=== PATIENT | male | born 1960 | race Caucasian/White ===

== ENCOUNTER 2017-07-13 17:22 | Inpatient (IN) | payer BC ==
[~2017-07-13] VITALS: Ht 175.3 cm; Wt 79.8 kg
--- NOTE | ~2017-07-13 | HC ---
[facility] [place] [address] CONSULTATION Name: TANISHAROSALIA Eva Room #: 214-P ADM IN M.R.#: [id number] Admission: 07/13/17 Attend Phys: Uvaldo Thomas MD Discharge: Date of : 62 Report #: [id number] THIS REPORT FOR: //name// CC: ZEYNEP Thomas DATE OF SERVICE: 07/14/2017 PRIMARY CARE PHYSICIAN: Dr. Zeynep Garvin in [place], [place]. HISTORY OF PRESENT ILLNESS: The patient is a 57-year-old white male who was sent to the Emergency Room with evidence of high-degree AV block. The patient has a long history of chest pain. He previously was seen by my partner, Dr. Montes, back in 2012. Echocardiogram showed evidence of aortic sclerosis with moderate aortic insufficiency. Nuclear stress test showed no ischemia. He eventually underwent cardiac catheterization here at [facility] in 2012 that showed only 30% stenosis of the LAD, 40% stenosis of the marginal branch of circumflex and the right coronary artery had a 50% stenosis. He had normal left ventricular function. It is recommended he be treated medically. The patient has done well since that time, although he continues to have occasional chest pain. The patient stays active at work. He has a history of palpitations, wore Holter monitor back in 2015 that showed sinus bradycardia, sinus tachycardia, occasional PVC, ventricular triplet, rare PAC. The patient states he was doing well until the past week, he has felt somewhat short of breath, had fatigue and thought he had the flu. He went to see his physician yesterday. His blood pressure elevated. He was noted to be in high degree AV block. His drove him over to [facility], and he was admitted. He denies any syncope. He has had no palpitations. PAST MEDICAL HISTORY: He has had no major surgical procedures. He does have a history of hypertension and hyperlipidemia. MEDICATIONS: Consist of aspirin, lisinopril, Crestor, gabapentin because a history of manic depressive illness. Xanax as needed, Symbicort, ProAir. ALLERGIES: He has no known drug allergies. FAMILY HISTORY: Negative for heart disease. SOCIAL HISTORY: He is . He and his live in [place], [place]. He smokes a pack of cigarettes a day. Has 1-4 drinks of alcohol a day. He is a steel fabricator. REVIEW OF SYSTEMS: He has had no history of stroke. He does have a chronic cough. No history of peptic ulcer disease, liver disease, kidney disease, [address] [address] CONSULTATION Name: TANISHAROSALIA Eva Room #: 214-P [facility] IN M.R.#: [id number] Admission: 07/13/17 Attend Phys: Uvaldo Thomas MD Discharge: Date of : 62 Report #: [id number] chronic skin condition. He has bipolar. PHYSICAL EXAMINATION: GENERAL: Revealed a middle-aged male, lying in bed, he appeared in no distress. VITAL SIGNS: Blood pressure 140/60, pulse is 50. He is afebrile. HEENT: He is anicteric. Conjunctivae pink. Mucous membranes moist. NECK: Veins nondistended. No carotid bruits heard. Neck was supple. CHEST: Clear to auscultation. CARDIOVASCULAR: Irregular bradycardia. There was a grade 2 systolic ejection murmur along the left sternal border. ABDOMEN: Soft, nontender. EXTREMITIES: Had no edema. Dorsalis pedis pulse 3+ bilaterally. SKIN: Warm and dry. NEUROLOGIC: Nonfocal. LYMPH: No adenopathy. MUSCULOSKELETAL: No joint effusion. His workup included an ECG that showed a sinus rhythm. There was AV dissociation due to complete heart block, poor R-wave progression. His workup in the Emergency Room yesterday, he had a portable chest x-ray that showed normal heart size, clear lung croft. LABORATORY DATA: Sodium was 140, potassium 4.8, his BUN is 20, creatinine 1.1, glucose 151, magnesium 2.0. Troponin 0.04. His white blood cell count 10.1, hemoglobin 16. IMPRESSION AND RECOMMENDATIONS: 1. Complete heart block. Reason unclear. I would check thyroid function studies. No evidence of Lyme disease. I would recommend a permanent pacemaker. 2. Hypertension. The patient has been on an NICOLAS inhibitor. 3. Hyperlipidemia. The patient is on a statin drug. 4. Tobacco abuse. 5. Chronic bronchitis. 6. Bipolar illness. <ELECTRONICALLY SIGNED> By: Zeynep Mohan MD, [facility] 07/14/17 1854 0755 [id number] Zeynep Mohan MD, FACC /nt
--- NOTE | ~2017-07-13 | EKG ---
[address] [address] ELECTROCARDIOGRAM REPORT Name: ROSALIA GARAY Room #: 214-P ADM IN M.R.#: [id number] Admission: 07/13/17 Attend Phys: Uvaldo Thomas MD Discharge: Date of : 62 Report #: [id number] THIS REPORT FOR: //name// [facility] Test Date: 2017-07-15 Test Time: 06:22:29 Pat Name: ROSALIA GARAY Department: Room: 214 P Gender: M Clin Asst: : 1960 Requested By: Kaushik Mohan Order Number: [id number] MD: Peña Reynolds Measurements Intervals [place] Rate: 62 P: 54 MN: 219 QRS: -82 QRSD: 162 T: 78 QT: 484 QTc: 492 Interpretive Statements Sinus rhythm with ventricular pacing Electronically Signed On 07-15-2017 8:14:16 CDT by Peña Reynolds [email or web address] <ELECTRONICALLY SIGNED> By: Peña Reynolds MD 07/15/17 0814 0622 1 Peña Reynolds MD /LIANET
--- NOTE | ~2017-07-13 | EKG ---
[address] [address] ELECTROCARDIOGRAM REPORT Name: ROSALIA GARAY Room #: 214- ADM IN M.R.#: [id number] Admission: 07/13/17 Attend Phys: Uvaldo Thomas MD Discharge: Date of : 62 Report #: [id number] THIS REPORT FOR: //name// [facility] ED Test Date: 2017-07-13 Test Time: 17:26:51 Pat Name: ROSALIA GARAY Department: Room: [facility] Gender: M Roof Slater: KKODJUNE : 1960 Requested By: Gary Ghosh Order Number: [id number] MD: Peña Reynolds Measurements Intervals [place] Rate: 42 P: 62 UT: 126 QRS: -2 QRSD: 96 T: 30 QT: 495 QTc: 414 Interpretive Statements Sinus rhythm with complete heart block Electronically Signed On 07-13-2017 21:35:55 CDT by Peña Reynolds [email or web address] <ELECTRONICALLY SIGNED> By: Peña Reynolds MD 07/13/17 2135 1726 25 Peña Reynolds MD /LIANET
--- NOTE | ~2017-07-13 | 2DMMODE ---
[facility] [address] [facility] [place] [address] 2 D/M-MODE ECHOCARDIOGRAM Name: ROSALIA GARAY Room #: 214-P [facility] IN .R.#: [id number] Admission: 07/13/17 Attend Phys: Uvaldo Thomas, Discharge: Date of : 62 Date of Service: 07/14/17 1226 Report #: [id number] THIS REPORT FOR: //name// APPROVED REPORT Study performed: 07/14/2017 10:16:09 EXAM: Comprehensive 2D, Doppler, and color-flow Echocardiogram Patient Location: Bedside Room #: 214 Status: routine BSA: 1.95 HR: 50 bpm BP: 143/64 mmHg Other Information Study Quality: Good Indications Bradycardia Hypertension/HDD 2D Dimensions RVDd: 30.82 mm LVEF(%): 59.75 (>50%) IVSd: 11.43 (7-11mm) LVOT Diam: 21.69 (18-24mm) LVDd: 50.01 mm PWd: 10.89 (7-11mm) Ascending Ao: 30.05 (22-36mm) LVDs: 34.05 (25-40mm) Aortic Root: 35.34 mm IVC: 15.00 mm Galloway's LVEF: 59.75 % Volumes Left Atrial Volume (Systole) Single Plane 4CH: 51.72 mL Single Plane 2CH: 65.91 mL LA ESV Index: 33.00 mL/m2 Aortic Valve AoV Peak Scott.: 1.85 m/s AO Peak Gr.: 13.66 mmHg LVOT Max P.87 mmHg LVOT Max V: 1.31 m/s RADHA Vmax: 2.62 cm2 AI Vmax: 4.30 m/s AI [place]: 2.01 m/s2 AI PHT: 619.23 ms [facility] [place] [address] 2 D/M-MODE ECHOCARDIOGRAM Name: ROSALIA GARAY Room #: 214-P [facility]#: [id number] Admission: 07/13/17 Attend Phys: Uvaldo Thomas, Discharge: Date of : 62 Date of Service: 07/14/17 1226 Report #: [id number] Mitral Valve E/A Ratio: 0.7 MV Decel. Time: 539.64 ms MV E Max Scott.: 1.07 m/s MV A Scott.: 1.45 m/s MV PHT: 156.49 ms IVRT: 152.25 ms Pulmonary Valve PV Peak Scott.: 1.28 m/s PV Peak Gr.: 6.53 mmHg Pulmonary Vein P Vein S: 0.66 m/s P Vein A: 0.30 m/s P Vein D: 0.62 m/s P Vein A Dur.: 115.3 msec P Vein S/D Ratio: 1.06 Tricuspid Valve TR Peak Scott.: 1.86 m/s TR Peak Gr.: 13.86 mmHg PA Pressure: 19.00 mmHg Left Ventricle The left ventricle is normal size. There is normal LV segmental wall motion. Borderline concentric left ventricular hypertrophy. The left ventricular systolic function is normal. The left ventricular ejection fraction is within the normal range. LVEF is 55-60%. This study is not technically sufficient to allow evaluation of the LV diastolic function. Right Ventricle The right ventricle is normal size. The right ventricular systolic function is normal. Atria Left atrium is at the upper limits of normal. Right atrium is at the upper limits of normal. Aortic Valve The Aortic valve is sclerotic. Mild aortic regurgitation. There is no aortic valvular stenosis. Mitral Valve The mitral valve is normal in structure. There is no mitral valve regurgitation noted. No evidence of mitral valve stenosis[place] [address] 2 D/M-MODE ECHOCARDIOGRAM Name: TANISHAROSALIA Velasquez Room #: 214-P [facility] IN ..#: [id number] Admission: 07/13/17 Attend Phys: Uvaldo Thomas, Discharge: Date of : 62 Date of Service: 07/14/17 1226 Report #: [id number] The tricuspid valve is normal in structure. There is trace tricuspid regurgitation. Estimated PAP 19 mmHg. Pulmonic Valve The pulmonary valve is normal in structure. There is no pulmonic valvular regurgitation. Great Vessels The aortic root is normal in size. IVC is normal in size and collapses >50% with inspiration. Pericardium There is no pericardial effusion. <Conclusion> LVEF is 55-60%. Mild aortic regurgitation. <ELECTRONICALLY SIGNED> By: Kaushik Mohan MD, [facility] 07/14/17 1226 122 25 Kaushik Mohan MD, FACC /INF
--- NOTE | ~2017-07-13 | CATHLAB ---
[facility] [address] [place] [address] INVASIVE PROCEDURE REPORT Name: TANISHAROSALIA Eva Room #: 214-P [facility] IN [facility]#: [id number] Admission: 07/13/17 Attend Phys: Uvaldo Thomas, Discharge: Date of : 62 Date of Service: 07/14/17 1916 Report #: [id number] THIS REPORT FOR: //name// APPROVED REPORT Study performed: 07/14/2017 13:43:30 Patient Status: In-Patient Room #: Exam: Insertion of Dual Chamber Permanent Pacemaker Indications: Complete Heart Block The patient is a 57 year-old male with a history of Complete Heart Block. Implanted Devices: dual chamber mri compatible biotronic pacemaker and leads Procedure The patient underwent informed consent. We discussed the details of the procedure including the risks, which include, but not limited to bleeding, infection, vascular damage, cardiac perforation, and pneumothorax. He understood these risks and was willing to proceed. As such, he was brought to the EP/Cardiac Catheterization laboratory in a fasting and sedated state and prepped and draped in a sterile fashion, received IV antibiotics prior to initiation of the procedure and a venogram was performed showing patency of the left axillary vein. The patient underwent conscious sedation, with no related complications. The patient was brought to the EP/Cardiac Catheterization laboratory and the left chest and shoulder were prepped and draped in a sterile manner. During this case, Fluoroscopy and low osmolar contrast were used for imaging. The left subclavian region was infiltrated with 2% Lidocaine subcutaneous anesthesia. A transverse incision was made in the left upper chest cavity. The subcutaneous pocket was formed via blunt dissection. Percutaneous venous access was achieved and an introducer sheath was inserted into the left Subclavian vein. Sheaths were positions using the modified Seldinger technique Through the introducer sheaths the atrial and ventricular lead wires were positioned in the right atrial appendage and right ventricular apex respectively. Utilizing fluoroscopic guidance, the atrial and ventricular lead [facility] [address] [place] [address] INVASIVE PROCEDURE REPORT Name: TANISHAROSALIA CANTU Room #: 214-P [facility] IN ..#: [id number] Admission: 07/13/17 Attend Phys: Uvaldo Thomas, Discharge: Date of : 62 Date of Service: 07/14/17 1916 Report #: [id number] wires were advanced over the wires and positioned in the right atria and right ventricle respectively. Capturing and sensing thresholds were verified. Electrode Parameters P Wave: 5.7 mv R Wave: 11.8 mv Atrial Threshold: 0.6v @ 0.4 ms Ventricular Threshold: 0.8 v @ 0.4 ms Atrial Resistance: 546 ohm Ventricular Resistance: 702 ohm Dual Chamber The atrial and ventricular leads were then secured using 0 silk sutures. The subcutaneous pocket was irrigated with ancef antibiotic solution.The atrial and ventricular leads were attached to the appropriate receptacles on the pulse generator and set screws firmly tightened to insure adequate contact and stability. The lead and pulse generator were placed into the subcutaneous pocket. Sharp and sponge counts were confirmed to be correct. At this time the pocket was closed subcutaneously with a 0 Vicryl and the skin was closed with a 4.0 Vicryl. The operative site was dressed in sterile fashion with skin affix and the patient was transferred to the floor in stable condition. Complications The patient tolerated the procedure well and there were no complications associated with the procedure. Findings Specimens Removed: No Estimated Blood Loss: 10 cc Conclusion successful placement of a permanent dual chamber pacemaker and leads <ELECTRONICALLY SIGNED> By: Kaushik Mohan MD, FACC 07/14/171915 15 15 Kaushik Mohan MD, FACC /INF
[~2017-07-13 17:22] MED LIST: ACID REDUCER20 MG PO; ADULT LOW DOSE81 MG; ALEVE220 MG PO; ALPRAZOLAM 0.0.25 M1 PO; ASPIRIN EC81 M1 PO; ATENOLOL 50MG T50 M1; CIALIS2.5 MG PO; CIALIS20 MG PO; CRESTOR10 MG PO; DESYREL150 MG PO; FLEXERIL PO; GABAPENTIN 100100 MG PO; GABAPENTIN600 M1 PO; KEFLEX500 MG PO; LISINOPRIL10 MG PO; NITROGLYCERIN0.4 MG SL; NORCO 5-325 TA1 EACH PO; PAIN & FEVER325 MG PO; PROAIR HFA8.5 GM INH; SYMBICORT160 MCG/4. INH; TRAZODONE HCL100 MG PO; ZOFRAN4 MG PO
[2017-07-13 17:26] VITALS: BP 174/58
[2017-07-13 17:51] LABS: ABSOLUTE NEUTROPHILS 6.9 thou/uL (1.4-8.2); BASOPHILS 1.3 % (0.0-2.0); EOSINOPHILS 5.2 % (0.0-3.0); HEMATOCRIT 45.6 % (42.0-52.0); HEMOGLOBIN 15.6 gm/dL (14.0-18.0); LYMPHOCYTES 20.5 % (24.0-44.0); MCH 30.6 pg (26.0-34.0); MCHC 34.1 g/dL (28.0-37.0); MCV 89.7 fL (80.0-100.0); MONOCYTES 7.9 % (1.0-8.0); PLATELET COUNT 238 thou/uL (150-400); POLYS 65.1 % (36.0-66.0); RBC 5.08 mil/uL (4.50-6.00); RDW 13.5 % (10.5-14.5); WBC 10.6 thou/uL (4.0-11.0)
[2017-07-13 17:59] LABS: ANION GAP 9 mmol/L (7-16); BUN 17 mg/dL (7-18); CALCIUM 9.4 mg/dL (8.5-10.1); CHLORIDE 108 mmol/L (98-107); CO2 25 mmol/L (21-32); GLUCOSE 94 mg/dL (74-106); POTASSIUM 4.3 mmol/L (3.5-5.1); SODIUM 142 mmol/L (136-145)
[2017-07-13 18:07] LABS: TROPONIN-I < 0.04 ng/mL (<0.06)
[2017-07-13 18:33] VITALS: BP 174/58
[2017-07-13 19:21] VITALS: BP 119/56
[2017-07-13 20:52] VITALS: BP 140/54
[2017-07-14 00:55] VITALS: BP 130/40
[2017-07-14 04:45] VITALS: BP 128/42
[2017-07-14 05:48] LABS: HEMATOCRIT 46.9 % (42.0-52.0); MCH 30.8 pg (26.0-34.0); MCHC 34.1 g/dL (28.0-37.0); MCV 90.3 fL (80.0-100.0); RBC 5.2 mil/uL (4.50-6.00); RDW 13.1 % (10.5-14.5); WBC 10.1 thou/uL (4.0-11.0)
[2017-07-14 05:55] LABS: ANION GAP 10 mmol/L (7-16); BUN 20 mg/dL (7-18); CALCIUM 9.1 mg/dL (8.5-10.1); CHLORIDE 108 mmol/L (98-107); CO2 22 mmol/L (21-32); CREATININE 1.1 mg/dL (0.7-1.3); GLUCOSE 151 mg/dL (74-106); POTASSIUM 4.8 mmol/L (3.5-5.1); SODIUM 140 mmol/L (136-145); TROPONIN-I < 0.04 ng/mL (<0.06)
[2017-07-14 08:12] VITALS: BP 143/64
[2017-07-14 11:36] VITALS: BP 124/58
[2017-07-14 11:59] LABS: URINE BILIRUBIN NEGATIVE (Negative); URINE BLOOD TRACE (Negative); URINE CLARITY CLEAR; URINE COLOR YELLOW; URINE GLUCOSE-RANDOM* NEGATIVE (Negative); URINE KETONES NEGATIVE (Negative); URINE LEUKOCYTES TRACE (Negative); URINE NITRITE NEGATIVE (Negative); URINE PROTEIN (DIPSTICK) NEGATIVE (Negative); URINE UROBILINOGEN 0.2 E.U./dl (0.2-1.0)
[2017-07-14 20:13] VITALS: BP 140/68
[2017-07-15 00:38] VITALS: BP 128/59
[2017-07-15 03:49] LABS: HEMATOCRIT 43.3 % (42.0-52.0); HEMOGLOBIN 14.8 gm/dL (14.0-18.0); MCH 30.5 pg (26.0-34.0); MCHC 34.2 g/dL (28.0-37.0); MCV 89.1 fL (80.0-100.0); RBC 4.86 mil/uL (4.50-6.00); RDW 13.7 % (10.5-14.5); WBC 13.6 thou/uL (4.0-11.0)
[2017-07-15 04:55] VITALS: BP 153/69
[2017-07-15 08:34] VITALS: BP 146/60
[2017-07-15] MEDS ORDERED: PREDNISONE 20 M20 MG PO (09:48)
[2017-07-15 09:52] VITALS: BP 146/60
== END 2017-07-15 10:35 | disposition home or self-care (01) | DRG 243 ==
LOC: ER 17:22 → EROBS 18:07 → 2N 18:07
PROVIDERS: Internal Medicine; Internal Medicine Cardiovascular Disease; Physician Assistant
PROC: 0JH606Z Insertion of Pacemaker, Dual Chamber into Chest Subcutaneous Tissue and Fascia, Open Approach (ICD-10-PCS; principal; 2017-07-14)
PROC: 02H63JZ Insertion of Pacemaker Lead into Right Atrium, Percutaneous Approach (ICD-10-PCS; principal; 2017-07-14)
PROC: 02HK3JZ Insertion of Pacemaker Lead into Right Ventricle, Percutaneous Approach (ICD-10-PCS; principal; 2017-07-14)
DX: I44.2 Atrioventricular block, complete (principal); J44.1 Chronic obstructive pulmonary disease with (acute) exacerbation; I10 Essential (primary) hypertension; F41.9 Anxiety disorder, unspecified; E78.5 Hyperlipidemia, unspecified; K57.90 Diverticulosis of intestine, part unspecified, without perforation or abscess without bleeding; I25.10 Atherosclerotic heart disease of native coronary artery without angina pectoris; F12.90 Cannabis use, unspecified, uncomplicated; F31.9 Bipolar disorder, unspecified; F17.210 Nicotine dependence, cigarettes, uncomplicated; Z79.82 Long term (current) use of aspirin; Z79.899 Other long term (current) drug therapy
CPT/HCPCS: 10194

== ENCOUNTER 2017-08-26 08:10 | Emergency (ER) | payer BC ==
[~2017-08-26] VITALS: Ht 175.3 cm; Wt 79.8 kg
--- NOTE | ~2017-08-26 | EKG ---
[address] [place] [address] ELECTROCARDIOGRAM REPORT Name: TANISHAROSALIA Velasquez Room #: [facility]#: [id number] Admission: 08/26/17 Attend Phys: Discharge: 08/26/17 Date of : 62 Report #: [id number] THIS REPORT FOR: //name// [facility] ED Test Date: 2017-08-26 Test Time: 08:32:42 Pat Name: ROSALIA GARAY Department: Room: Gender: M Temperature Control Inspector: [email or web address] : 1960 Requested By: Guero Martínez Order Number: [id number] MD: Reg Gonzalez Measurements Intervals [place] Rate: 59 P: 47 TN: 205 QRS: -87 QRSD: 174 T: 91 QT: 449 QTc: 445 Interpretive Statements Atrial-sensed ventricular-paced rhythm No further analysis attempted due to paced rhythm Compared to ECG 07/15/2017 06:22:29 No significant change was found Electronically Signed On 08-27-2017 7:37:11 CDT by Reg Gonzalez [email or web address] <ELECTRONICALLY SIGNED> By: Reg Gonzalez MD, [facility] 08/27/17 0737 0832 0832 Reg Gonzalez MD, [facility] /EPI
[~2017-08-26 08:10] MED LIST changes: +PREDNISONE 20 M20 MG PO
[2017-08-26 08:36] LABS: ABSOLUTE NEUTROPHILS 7.8 thou/uL (1.4-8.2); BASOPHILS 0.6 % (0.0-2.0); EOSINOPHILS 2.1 % (0.0-3.0); HEMATOCRIT 48.1 % (42.0-52.0); HEMOGLOBIN 16.5 gm/dL (14.0-18.0); LYMPHOCYTES 16.4 % (24.0-44.0); MCH 30.8 pg (26.0-34.0); MCHC 34.3 g/dL (28.0-37.0); MCV 89.9 fL (80.0-100.0); MONOCYTES 6.8 % (1.0-8.0); PLATELET COUNT 280 thou/uL (150-400); POLYS 74.1 % (36.0-66.0); RBC 5.35 mil/uL (4.50-6.00); RDW 13.2 % (10.5-14.5); WBC 10.5 thou/uL (4.0-11.0)
[2017-08-26 08:47] LABS: ANION GAP 10 mmol/L (7-16); BUN 18 mg/dL (7-18); CALCIUM 9.6 mg/dL (8.5-10.1); CHLORIDE 106 mmol/L (98-107); CO2 25 mmol/L (21-32); CREATININE 0.9 mg/dL (0.7-1.3); GLUCOSE 118 mg/dL (74-106); POTASSIUM 4.4 mmol/L (3.5-5.1); SODIUM 141 mmol/L (136-145)
[2017-08-26 08:55] LABS: TROPONIN-I < 0.04 ng/mL (<0.06)
[2017-08-26] MEDS ORDERED: NITROGLYCERIN0.4 MG SL (09:51)
== END 2017-08-26 10:09 | disposition home or self-care (01) ==
LOC: ER 08:10
PROVIDERS: Emergency Medicine
DX: R07.9 Chest pain, unspecified (principal); I10 Essential (primary) hypertension; F41.9 Anxiety disorder, unspecified; F32.9 Major depressive disorder, single episode, unspecified; E78.5 Hyperlipidemia, unspecified; I25.10 Atherosclerotic heart disease of native coronary artery without angina pectoris